=== PATIENT | male | born 1980 | race Caucasian/White ===

== ENCOUNTER 2025-03-04 15:09 | Outpatient (AMB) | payer OTHER, SELFPAY ==
--- NOTE | 2025-03-04 15:12 | MHC.PC.OV ---
Vital Signs 03/04/25 15:31 Height 5 ft 11 in Weight 186 lb 6 oz BMI 26.0 BP 118/78 Blood Pressure Location Lt brachial Position Sitting Respiration 16 Pulse 79 Pulse Source Pulse Oximeter Temp 97.7 F Temp Source Temporal Artery Scan Pulse Oximetry (%) 96 Oxygen Delivery Method Room Air Intake Visit Reasons: CPE? Intake Note: Virgil presents in the office today to establish care. Allergies oxycodone Allergy (Severe, Verified 03/04/25 15:27) Vomiting Tobacco use date assessed: 03/04/25 Dental Screening Dental Screen Date: 03/04/25 Did you have a dental visit in the last 12 months?: Yes Did you have a dental problem in the last 6 months where you did not have access to dental care?: No Was dental information given to patient?: Patient has dentist HPI HPI Comments History of Present Illness Details 44-year-old male presents to establish care. Patient hospitalized at [facility] 11/24/2024 after falling off a ladder. This is workman's comp. He does H VAC. Hospitalized for 3 weeks with multiple fractures including pelvic fracture. Dr. Lucas is hand surgeon at [facility] cleared for surgery. He has a follow up next week. He will sign a release for records. Had no LOC with trauma. 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 Declines flu vaccine. Patient reports he had tetanus vaccination within the past 10 years. He has a history of hemorrhoids. He has some itching and leakage with this. Prescribed procto court and he is referred for screening colonoscopy. He will have routine labs completed. ROS: Constitutional: No unexplained weight loss, fever, chills, fatigue or night sweats. Eyes: No vision changes, blurry vision, double vision, eye pain, eye redness, eye discharge. ENT: No hearing loss, sneezing, congestion, runny nose or sore throat. Respiratory: No shortness of breath, cough or sputum production. Cardiovascular: No chest pain, chest pressure or chest discomfort. No palpitations or pedal edema. Gastrointestinal: No anorexia, nausea, vomiting or diarrhea. No abdominal pain or blood in stool. Genitourinary: No dysuria, hematuria, urinary frequency. Neurologic: No headache, dizziness, syncope, unilateral weakness, ataxia, numbness or tingling in the extremities. Musculoskeletal: See HPI Hematologic/Lymphatics: No bleeding or bruising. No painful lymph nodes. Skin: No rash Endocrine: No cold or heat intolerance. No polyuria or polydipsia. Psychiatric: No depression or anxiety. No SI/HI. Physical exam: Constitutional: Alert, in no distress. Head: Normocephalic. Eyes: Pupils are equal, round and reactive to light. Extraocular muscles intact. Ear, Nose and Throat: Canals clear. TMs normal. Normal nasal mucosa. No nasal discharge. No oral lesions. Neck: Supple, Full range of motion. No lymphadenopathy. No palpable thyroid masses. Respiratory: Clear to auscultation. Cardiovascular: S1 S2 regular. No murmurs. Gastrointestinal: Abdomen soft, non-tender, non-distended. Normal bowel sounds. No palpable masses. : Deferred. Does home exams and denies masses, lumps, pain or swelling. Neurologic: No focal neurological deficits. Symmetric patellar reflexes. Skin: No rashes or lesions. Musculoskeletal: No joint swelling. Decreased range of motion with right hand. Extremities: Warm and well perfused. No clubbing, cyanosis or edema. Psychiatric: Normal mood and affect [facility] Medical History (Updated 03/05/25 @ 17:25 by ROSY Martines) Hemorrhoids Multiple fracture Screening for cardiovascular condition Routine physical examination Screen for colon cancer Wrist fracture Pelvic fracture Sinusitis Family History (Updated 03/04/25 @ 15:30 by Reba Summers [facility]) Mother Thyroid disorder Social History (Updated 03/04/25 @ 15:31 by Reba uSmmers CMA) Housing: House Alcohol intake: current Patient Tobacco Use Status: Never used Tobacco e-Cigarette/Vaping Use: Never Used Second Hand Smoke Exposure: Yes service: No Current occupational status: employed Current occupation: [employer] Current occupational exposures/hazards: No Cognitive needs: No Hearing needs: No Vision needs: No Questionnaire PHQ-9 Over the last 2 weeks, how often have you been bothered by any of the following problems? 1. Little interest or pleasure in doing things: not at all 2. Feeling down, depressed, or hopeless: not at all 3. Trouble falling or staying asleep, or sleeping too much: not at all 4. Feeling tired or having little energy: not at all 5. Poor appetite or overeating: not at all 6. Feeling bad about yourself - or that you are a failure or have let yourself or your family down: not at all 7. Trouble concentrating on things, such as reading the newspaper or watching television: not at all 8. Moving or speaking so slowly that other people could have noticed. Or the opposite - being so fidgety or restless that you have been moving around a lot more than usual: not at all 9. Thoughts that you would be better off or of hurting yourself in some way: not at all Total score: 0 Depression Screening Interpretation: Negative Depression Screening Done: Yes 34840 - PHQ-9 Billing: Yes Source: Developed by Drs. Edward Brown, Juanita Griffin, Desean Dean and colleagues, with an educational mery from [employer]. Thrive Questionnaire Date Thrive assessed: 03/04/25 I am a: Patient What is your living situation today?: I have a steady place to live Within the past 12 months, did the food you bought not last and you didn't have the money to get more?: Never true Within the past 12 months, did you worry whether your food would run out before you got money to buy more?: Never true Do you have trouble paying for medicines?: No Do you have trouble getting transportation to medical appointments?: No Do you have trouble paying your heating and electricity bill?: No Do you have trouble taking care of your child, family member or friend?: No Do you have trouble with day-to-day activities such as bathing, preparing meals, shopping, managing finances, etc.?: No Are you currently unemployed and looking for a job?: No Are you interested in more education?: Yes Please select the resources that you would like help with: None Currently or been in a relationship where the following occur: No concerns reported THRIVE Score: 0 AUDIT C Alcohol Use Questionnaire (AUDIT-C) 1. How often do you have a drink containing alcohol?: Monthly or less 2. How many drinks containing alcohol do you have on a typical day when you are drinking?: 1 or 2 3. How often do you have six or more drinks on one occasion?: Less than monthly Total Score: 2 ESTRELLITA-7 AMB Questionnaire ESTRELLITA-7 Date ESTRELLITA - 7 assessed: 03/04/25 Feeling nervous, anxious, or on edge: 0 = Not at all Not being able to stop or control worryin = Not at all Worrying too much about different things: 0 = Not at all Trouble relaxin = Not at all Being so restless that it is hard to sit still: 0 = Not at all Becoming easily annoyed or irritable: 0 = Not at all Feeling afraid as if something awful might happen: 0 = Not at all Total ESTRELLITA-7 score (0-4 normal; 5-9 mild; 10-14 moderate; 15-21 severe): 0 Source: Developed by Drs. Edward Brown, Juanita Griffin, Desean Dean and colleagues, with an educational mery from [employer]. ESTRELLITA-7 Assessment Billing ESTRELLITA-7 Assessment Tool: ESTRELLITA-7 Assessment 67045 Physical exam (Primary Care) Vital Signs: Last Vital Signs Temp 97.7 F 03/04/25 15:31 Pulse 79 03/04/25 15:31 Resp 16 03/04/25 15:31 BP 118/78 03/04/25 15:31 Pulse Ox 96 03/04/25 15:31 Oxygen Delivery Method Room Air 03/04/25 15:31 BMI result Body Mass Index 26.0 Tobacco/Smoking Status: Tobacco use Status Tobacco use date assessed 03/04/25 03/04/25 15:36 Patient Tobacco Use Status Never used Tobacco 03/04/25 15:36 e-Cigarette/Vaping Use Never Used 03/04/25 15:36 PHQ-9: PHQ-9 Score PHQ-9: Total score 0 03/05/25 17:22 Depression Screening Interpretation: Negative Thrive Assessment: Date of Thrive Assessment Date Thrive assessed 03/04/25 03/04/25 15:13 Currently or been in a relationship where the following occur: No concerns reported Coding Level of Care Code New Pt Prev Care 40-64y(75954) Diagnoses Routine physical examination Z00.00 Screen for colon cancer Z12.11 Screening for cardiovascular condition Z13.6 Multiple fracture T07.XXXA Additional Codes ESTRELLITA-7 Assessment Billing - ESTRELLITA-7 Assessment Tool: ESTRELLITA-7 Assessment 45200 ([id number]) PHQ-9 - 99682 - PHQ-9 Billing: Yes ([id number]) Assessment & Plan Assessment & Plan (1) Routine physical examination: Code(s): Z00.00 - Encounter for general adult medical examination without abnormal findings Category: Medical (2) Screen for colon cancer: Code(s): Z12.11 - Encounter for screening for malignant neoplasm of colon Category: Medical (3) Screening for cardiovascular condition: Code(s): Z13.6 - Encounter for screening for cardiovascular disorders Category: Medical (4) Multiple fracture: Code(s): T07.XXXA - Unspecified multiple injuries, initial encounter Category: Medical Plan Patient is seen today for a routine physical. As part of this visit we reviewed the following issues, which are considered and essential part of preventative health in this age group: - Testicular cancer screening, which includes self exam teaching - Screening for colon cancer - Discussed Prostate cancer screening - Blood pressure screening annually - Cholesterol screening - Nutritional and exercise counseling - Counseling of injury prevention including fire prevention, smoke alarms and seat belt usage - Screening for depression - Education about skin cancer - Recommendations about immunizations - Recommendation of an eye exam - Screening for substance abuse Orders: Orders Vitamin B12 Today T07.XXXA - Unspecified multiple injuries, initial encounter, Z00.00 - Encounter for general adult medical examination without abnormal findings, Z12.11 - Encounter for screening for malignant neoplasm of colon, Z13.6 - Encounter for screening for cardiovascular disorders, Z91.89 - Other specified personal risk factors, not elsewhere classified TSH reflex Free T4 Today T07.XXXA - Unspecified multiple injuries, initial encounter, Z00.00 - Encounter for general adult medical examination without abnormal findings, Z12.11 - Encounter for screening for malignant neoplasm of colon, Z13.6 - Encounter for screening for cardiovascular disorders Comprehensive Met. Panel Today T07.XXXA - Unspecified multiple injuries, initial encounter, Z00.00 - Encounter for general adult medical examination without abnormal findings, Z12.11 - Encounter for screening for malignant neoplasm of colon, Z13.6 - Encounter for screening for cardiovascular disorders Triiodothyronine T3 Free Today T07.XXXA - Unspecified multiple injuries, initial encounter, Z00.00 - Encounter for general adult medical examination without abnormal findings, Z12.11 - Encounter for screening for malignant neoplasm of colon, Z13.6 - Encounter for screening for cardiovascular disorders Prostate Specific Antigen Today T07.XXXA - Unspecified multiple injuries, initial encounter, Z00.00 - Encounter for general adult medical examination without abnormal findings, Z12.11 - Encounter for screening for malignant neoplasm of colon, Z12.5 - Encounter for screening for malignant neoplasm of prostate, Z13.6 - Encounter for screening for cardiovascular disorders Lipid Panel Today T07.XXXA - Unspecified multiple injuries, initial encounter, Z00.00 - Encounter for general adult medical examination without abnormal findings, Z12.11 - Encounter for screening for malignant neoplasm of colon, Z13.6 - Encounter for screening for cardiovascular disorders Complete Blood Count no Diff Today T07.XXXA - Unspecified multiple injuries, initial encounter, Z00.00 - Encounter for general adult medical examination without abnormal findings, Z12.11 - Encounter for screening for malignant neoplasm of colon, Z13.6 - Encounter for screening for cardiovascular disorders Vitamin D 25-OH (D2 and D3) Today T07.XXXA - Unspecified multiple injuries, initial encounter, Z00.00 - Encounter for general adult medical examination without abnormal findings, Z12.11 - Encounter for screening for malignant neoplasm of colon, Z13.6 - Encounter for screening for cardiovascular disorders Referrals Gastroenterology Referral T07.XXXA - Unspecified multiple injuries, initial encounter, Z00.00 - Encounter for general adult medical examination without abnormal findings, Z12.11 - Encounter for screening for malignant neoplasm of colon, Z13.6 - Encounter for screening for cardiovascular disorders Medications: New hydrocortisone 1% (Proctocort) 1 appl topical BID-TID PRN 28.35 grams 2RF skin irritation
[2025-03-04 15:31] VITALS: BP 118/78; PULSE 79; RESP 16; TEMP 36.5; O2SAT 96; BMI 26.0
--- OUTSIDE RECORDS SUMMARY | 2025-03-04 20:29 | XMS_ITS | Encounter Summary ---
Author Organization [facility] Address [address] [place] [address] Care Team Providers Care Auto Technician Name Role Phone Ref, Has No Pcp Or Primary Care Provider Unavail able Encounter Details Date Type Department Care Team (Late st Contact Info) Description 02/26/2025 Orders Only [facility] [address] [place] [id number] Satya Lucas MD [address] [place] [address] Other closed intra-articular fracture of distal end of left radius with routine healing, subsequent encounter (Primary Dx); Other closed intra-articular fracture of distal end of right radius, initial encounter Social History Tobacco Use Types Packs/Day Years Used Date Smoking Tobacco: Never Smokeless Tobacco: Never Alcohol Use Standard Drinks/Week Comments Not Currently 0 (1 standard drink = 0.6 oz pur e alcohol) Hunger Vital Sign Answer Date Recorded Within the past 12 months, y ou worried that your food would run out before you got the money to buy more. Never true 11/27/19 25 Within the past 12 months, t he food you bought just didn't last and you didn't have money to get more. Never true 11/26/2024 [facility] Utilities Answer Date Recorded In the past 12 months has e electric, gas, oil, or water company threatened to shut off services in your home? No 11/26/2024 Transportation Answer Date Recorded In the past 12 months, has l ack of reliable transportation kept you from medical appointments, meetings, work or from getting things needed for daily living? No 11/26/2024 Housing Answer Date Recorded Housing Risk Low 2 11/26/2024 Housing Risk Medium Not on file 11/26/2024 Housing Risk High Not on file 11/26/2024 What is your living situation today? [facility] 11/26/2024 Sex and Gender Information Value Date Recorded Sex Assigned at Male 11/24/2024 12:17 PM EDT Legal Sex Male 12:16 PM EDT Gender Identity Male 11/24/2024 12:17 PM EDT Sexual Orientation Straight 12/22/2024 8: 53 AM EDT documented as of this encounter Plan of Treatment Upcoming Encounters Date Type Department Care Team (Late st Contact Info) Description 03/09/2025 10:00 AM EST Follow-Up [facility] [address] [place] [id number] Satya Lucas MD [address] [place] [id number] 05/04/2025 10:30 AM EST Follow-Up [facility] [address] [place] [id number] Emily Iniguez MD [address] [place] [phone] Danika Moreno PA [address] [place] [id number] Scheduled Orders Name Type Priority Associated Diagnoses Orde r Schedule XR Wrist 3+ vw Right Imaging Routine Other closed intra-articular fracture of distal end of right radius, initial encounter Expected: 03/09/2025, Expires: 04/28/2026 XR Wrist 3+ vw Left Imaging Routine Other closed intra-articular fracture of distal end of left radius with routine healing, subsequent encounter Expected: 03/09/2025, Expires: 04/28/2026 Scheduled Procedures Name Priority Associated Diagnoses Date/Ti me OPEN TREATMENT, DISTAL RADIU S FRACTURE, INTRA-ARTICULAR, WITH INTERNAL FIXATION, 3 OR MORE FRAGMENTS Other closed intra-articular fracture of distal end of right radius, initial encounter CLOSED TREATMENT, DISTAL RAD IUS FRACTURE OR EPIPHYSEAL SEPARATION, WITHOUT MANIPULATION Other closed intra-articular fracture of distal end of right radius, initial encounter documented as of this encounter Visit Diagnoses Diagnosis Other closed intra-articular fracture of distal end of left radius with routine healing, subsequent encounter- Primary Other closed intra-articular fracture of distal end of right radius, initial encounter documented in this encounter Care Teams Auto Technician Relationship Specialty Start Date End Date Ref, Has No Pcp Or DO NOT EDIT THIS RECORD VIA PROVIDER ON THE FLY PCP - General Lithographic Platemaker 11/24/24 documented as of this encounter
--- OUTSIDE RECORDS SUMMARY | 2025-03-04 20:29 | XMS_ITS | Encounter Summary ---
Author Organization [facility] Address [address] [place] [address] Care Team Providers Care Fryline Attendant Name Role Phone Ref, Has No Pcp Or Primary Care Provider Unavail able Encounter Details Date Type Department Care Team (Late st Contact Info) Description 12/07/2024 Lab Requisition [facility] [address] [place] [address] [facility] [address] [place] [address] Social History Tobacco Use Types Packs/Day Years [...] money to get more. Never true 11/26/[address] [facility] Utilities Answer Date Recorded In the past 12 months has th e electric, gas, oil, or water company [...] AM EDT documented as of this encounter Functional Status documented as of this encounter Plan of Treatment Upcoming Encounters Date Type Department Care Team (Late st Contact Info) Description 03/09/2025 10:00 AM EST Follow-Up [facility] [address] [place] [phone] Satya Lucas MD [address] [place] [address] 05/04/2025 10:30 AM EST Follow-Up [facility] [address] [place] [address] Emily Iniguez MD [address] [place] [address] Danika Moreno PA [address] [place] [address] Scheduled Procedures Name Priority Associated Diagnoses Date/Ti me OPEN TREATMENT, DISTAL RADIU S FRACTURE, INTRA-ARTICULAR, WITH INTERNAL FIXATION, 3 OR MORE FRAGMENTS Other closed intra-articular fracture of distal end of right radius, initial encounter CLOSED TREATMENT, DISTAL RAD IUS FRACTURE OR EPIPHYSEAL SEPARATION, WITHOUT MANIPULATION Other closed intra-articular fracture of distal end of right radius, initial encounter documented as of this encounter Procedures * Due to [place] state law, this organization might not be sharing negative HIV tests. Procedure Name Priority Date/Time Associated Diagnosis Comments CBC AUTO DIFFERENTIAL Routine 12/10/2024 6:00 AM EDT BASIC METABOLIC PANEL Routine 12/10/2024 6:00 AM EDT CBC AUTO DIFFERENTIAL Routine 12/08/2024 6:50 AM EDT ALBUMIN Routine 12/08/2024 6:50 AM EDT BASIC METABOLIC PANEL Routine 12/08/2024 6:50 AM EDT documented in this encounter Results * Due to [place] state law, this organization might not be sharing negative HIV tests. * (ABNORMAL) Basic Metabolic Panel (12/10/2024 6:00 AM EDT) NA 137 136 - 145 mmol/L 12/10/2024 9:44 AM EDT [facility] K 4.5 3.5 - 5.1 mmol/L 12/10/2024 9:44 AM EDT [facility] Cl 101 98 - 109 mmol/L 12/10/2024 9:44 AM EDT [facility] CO2 23 22 - 32 mmol/L 12/10/2024 9:44 AM EDT [facility] BUN 27(H) 6 - 20 mg/dL 12/10/2024 9:44 AM EDT [facility] Creatinine 0.90 0.50 - 1.12 mg/dL 12/10/2024 9:44 AM EDT [facility] Glucose 95 60 - 99 mg/dL 12/10/2024 9:44 AM EDT [facility] Calcium 9.4 8.4 - 10.4 mg/dL 12/10/2024 9:44 AM EDT [facility] Anion Gap 18 >=0 12/10/2024 9:44 AM EDT [facility] eGFR >90 >=60 mL/min/1. 73m2 12/10/2024 9:44 AM EDT [facility] Comment:The estimated glomer ular filtration rate (eGFR) is calculated using a new formula developed by the NKF-ASN task force to eliminate race-based correction factors. The new formula uses serum/plasma creatinine, age, and gender to determine eGFR. A value below 60mls/min might indicate kidney disease and will be flagged. For additional information, see Torie et al, Am J Kidney Dis. 2021;79(2):268- 288, A Unifying Approach for GFR estimation: Recommendations of the NKF-ASN Task Force on Reassessing the Inclusion of Race in Diagnosing Kidney Disease . Blood Structure of peripheral vein / Unknown Venipuncture / Unknown 12/10/2024 6:00 AM EDT 12/10/2024 7:34 AM EDT Narrative [facility] - 12/10/2024 9:44 AM EDT NUR3\S\305\S\A\S\0156\S\S\BED\S\0156 us Macho Atoofi PA LAB BLOOD ORDERABLES Final Resul t [facility] [address] [place] [address] [address] [place] [address], * (ABNORMAL) CBC Auto Differential (12/10/2024 6:00 AM EDT) WBC 6.3 4.8 - 10.8 10*3/uL 12/10/2024 9:09 AM EDT [facility] RBC 4.63(L) 4.70 - 6.10 10*6/uL 12/10/2024 9:09 AM EDT [facility] Hemoglobin 12.4(L) 13.7 - 16.5 g/dL 12/10/2024 9:09 AM EDT [facility] Hematocrit 36.8(L) 40.5 - 48.5 % 12/10/2024 9:09 AM EDT [facility] MCV 79.5(L) 80.0 - 94.0 fL 12/10/2024 9:09 AM EDT [facility] MCH 26.8 26.0 - 34.0 pg 12/10/2024 9:09 AM EDT [facility] MCHC 33.7 31.0 - 36.0 g/dL 12/10/2024 9:09 AM EDT [facility] RDW 12.4 12.0 - 15.0 % 12/10/2024 9:09 AM EDT [facility] RDW Standard Deviation 35.6 35.1 - 43.9 fL 12/10/2024 9:09 AM EDT [facility] Platelets 338 140 - 440 10*3/uL 12/10/2024 9:09 AM EDT [facility] MPV 10.0 9.4 - 12.4 fL 12/10/2024 9:09 AM EDT [facility] Neutrophil % 58.3 50.0 - 75.0 % 12/10/2024 9:09 AM EDT [facility] Immature Grans % 0.5 0.0 - 0.9 % 12/10/2024 9:09 AM EDT [facility] Lymphocyte % 26.2 20.0 - 44.0 % 12/10/2024 9:09 AM EDT [facility] Monocyte % 10.7 0.0 - 14.0 % 12/10/2024 9:09 AM EDT [facility] Eosinophil % 3.5 0.0 - 5.0 % 12/10/2024 9:09 AM EDT [facility] Basophil % 0.8 0.0 - 2.0 % 12/10/2024 9:09 AM EDT [facility] Neutrophil # 3.69 1.80 - 7.70 10*3/uL 12/10/2024 9:09 AM EDT [facility] Immature Grans # 0.03 0.00 - 0.03 10*3/uL 12/10/2024 9:09 AM EDT [facility] Lymphocyte # 1.70 1.00 - 4.75 10*3/uL 12/10/2024 9:09 AM EDT [facility] Monocyte # 0.70(H) 0.00 - 0.60 10*3/uL 12/10/2024 9:09 AM EDT [facility] Eosinophil # 0.20 0.00 - 0.80 10*3/uL 12/10/2024 9:09 AM EDT [facility] Basophil # 0.10 0.00 - 0.20 10*3/uL 12/10/2024 9:09 AM EDT [facility] nRBC % 0.0 0 - 0 /100 WBCs 12/10/2024 9:09 AM EDT [facility] nRBC # <0.01 0.00 - 0.13 10*3/uL 12/10/2024 9:09 AM EDT [facility] Blood Structure of peripheral vein / Unknown Venipuncture / Unknown 12/10/2024 6:00 AM EDT 12/10/2024 7:36 AM EDT [facility] LAB BLOOD ORDERABLES Final Resul t Performing Organization Address [facility] de Phone Number [facility] [address] [place] [place] [id number], [place] [phone] * Albumin (12/08/2024 6:50 AM EDT) Albumin 4.3 3.5 - 5.0 g/dL 12/08/2024 11:33 AM EDT [facility] Blood Structure of peripheral vein / Unknown Venipuncture / Unknown 12/08/2024 6:50 AM EDT 12/08/2024 7:37 AM EDT Narrative [facility] - 12/08/2024 11:33 AM EDT NUR3\S\305\S\A\S\0156\S\S\BED\S\0156 NUR3\S\305\S\A\S\0156\S\S\BED\S\0156 Macho Atoofi PA LAB BLOOD ORDERABLES Final Resul t Performing Organization Address [facility] Co de Phone Number [facility] [address] [place] [address], [place] [phone] * (ABNORMAL) Basic Metabolic Panel (12/08/2024 6:50 AM EDT) NA 137 136 - 145 mmol/L 12/08/2024 11:33 AM EDT [facility] K 4.8 3.5 - 5.1 mmol/L 12/08/2024 11:33 AM EDT [facility] Cl 101 98 - 109 mmol/L 12/08/2024 11:33 AM EDT [facility] CO2 24 22 - 32 mmol/L 12/08/2024 11:33 AM EDT [facility] BUN 20 6 - 20 mg/dL 12/08/2024 11:33 AM EDT [facility] Creatinine 0.87 0.50 - 1.12 mg/dL 12/08/2024 11:33 AM EDT [facility] Glucose 111(H) 60 - 99 mg/dL 12/08/2024 11:33 AM EDT [facility] Calcium 9.8 8.4 - 10.4 mg/dL 12/08/2024 11:33 AM EDT [facility] Anion Gap 17 >=0 12/08/2024 11:33 AM T [facility] eGFR >90 >=60 mL/min/1. 73m2 12/08/2024 11:33 AM T [facility] Comment:The estimated glomer ular filtration rate (eGFR) is calculated using a new formula developed by the NKF-ASN task force to eliminate race-based correction factors. The new formula uses serum/plasma creatinine, age, and gender to determine eGFR. A value below 60mls/min might indicate kidney disease and will be flagged. For additional information, see Torie et al, Am J Kidney Dis. 2021;79(2):268- 288, A Unifying Approach for GFR estimation: Recommendations of the NKF-ASN Task Force on Reassessing the Inclusion of Race in Diagnosing Kidney Disease . Blood Structure of peripheral vein / Unknown Venipuncture / Unknown 12/08/2024 6:50 AM EDT 12/08/2024 7:37 AM EDT [facility] - 12/08/2024 11:33 AM EDT NUR3\S\305\S\A\S\0156\S\S\BED\S\0156 NUR3\S\305\S\A\S\0156\S\S\BED\S\0156 us Macho Atemmafi PA LAB BLOOD ORDERABLES Final Resul t [facility] [address] [place] [address], * (ABNORMAL) CBC Auto Differential (12/08/2024 6:50 AM EDT) WBC 6.6 4.8 - 10.8 10*3/uL 12/08/2024 11:02 AM EDT [facility] RBC 4.98 4.70 - 6.10 10*6/uL 12/08/2024 11:02 AM EDT [facility] Hemoglobin 13.3(L) 13.7 - 16.5 g/dL 12/08/2024 11:02 AM EDT [facility] Hematocrit 40.2(L) 40.5 - 48.5 % 12/08/2024 11:02 AM EDT [facility] MCV 80.7 80.0 - 94.0 fL 12/08/2024 11:02 AM EDT [facility] MCH 26.7 26.0 - 34.0 pg 12/08/2024 11:02 AM EDT [facility] MCHC 33.1 31.0 - 36.0 g/dL 12/08/2024 11:02 AM EDT [facility] RDW 12.5 12.0 - 15.0 % 12/08/2024 11:02 AM EDT [facility] RDW Standard Deviation 36.1 35.1 - 43.9 fL 12/08/2024 11:02 AM EDT [facility] Platelets 387 140 - 440 10*3/uL 12/08/2024 11:02 AM EDT [facility] Comment:REVIEWED MPV 9.8 9.4 - 12.4 fL 12/08/2024 11:02 AM EDT [facility] Neutrophil % 62.7 50.0 - 75.0 % 12/08/2024 11:02 AM EDT [facility] Immature Grans % 0.5 0.0 - 0.9 % 12/08/2024 11:02 AM EDT [facility] Lymphocyte % 24.1 20.0 - 44.0 % 12/08/2024 11:02 AM EDT [facility] Monocyte % 9.5 0.0 - 14.0 % 12/08/2024 11:02 AM EDT [facility] Eosinophil % 2.6 0.0 - 5.0 % 12/08/2024 11:02 AM EDT [facility] Basophil % 0.6 0.0 - 2.0 % 12/08/2024 11:02 AM EDT [facility] Neutrophil # 4.17 1.80 - 7.70 10*3/uL 12/08/2024 11:02 AM EDT [facility] Immature Grans # 0.03 0.00 - 0.03 10*3/uL 12/08/2024 11:02 AM EDT [facility] Lymphocyte # 1.60 1.00 - 4.75 10*3/uL 12/08/2024 11:02 AM EDT [facility] Monocyte # 0.60 0.00 - 0.60 10*3/uL 12/08/2024 11:02 AM EDT [facility] Eosinophil # 0.20 0.00 - 0.80 10*3/uL 12/08/2024 11:02 AM EDT [facility] Basophil # <0.03 0.00 - 0.20 10*3/uL 12/08/2024 11:02 AM EDT [facility] nRBC % 0.0 0 - 0 /100 WBCs 12/08/2024 11:02 AM EDT [facility] nRBC # <0.01 0.00 - 0.13 10*3/uL 12/08/2024 11:02 AM EDT [facility] Blood Structure of peripheral vein / Unknown Venipuncture / Unknown 12/08/2024 6:50 AM EDT 12/08/2024 7:39 AM EDT us Macho Atoofi PA LAB BLOOD ORDERABLES Final Resul t [facility] [address] [address], [place] [phone] documented in this encounter Visit Diagnoses Not on filedocumented in this encounter Care Teams Fryline Attendant Relationship Specialty Start Date End Date Ref, Has No Pcp Or DO NOT EDIT THIS RECORD VIA PROVID[facility] PCP - General Drill Setup Operator 11/24/24 documented as of this encounter
--- OUTSIDE RECORDS SUMMARY | 2025-03-04 20:29 | XMS_ITS | Encounter Summary ---
Author Organization [facility] Address [address] [place] [address] Care Team Providers Care Laborer [facility] Name Role Phone Ref, Has No Pcp Or Primary Care Provider Unavail able Encounter Details Date Type Department Care Team (Late st Contact Info) Description 02/10/2025 [facility] Message [facility] [address] [place] [id number] [place], Generic Provider [address] [place], [place] [id number] Physician form Social History Tobacco Use Types Packs/Day Years [...] money to get more. Never true 11/26/2024 [facility] Utilities Answer Date Recorded In the [...] Info) Description 03/09/2025 10:00 AM EST Follow-Up [facility] [address] [place] [address] Satya Lucas MD [address] [place] [address] 05/04/2025 10:30 AM EST Follow-Up [facility] [address] [place] [address] Emily Iniguez MD [address] [place] [phone] Danika Moreno PA [address] [place] [phone] Scheduled Procedures Name Priority Associated Diagnoses Date/Ti [...] documented as of this encounter Visit Diagnoses Not on filedocumented in this encounter Care Teams Laborer [employer] House Relationship Specialty Start Date End Date Ref, Has No Pcp Or DO NOT EDIT THIS RECORD VIA PROVIDER ON [employer] [facility] PCP - General Senior Technical Trainer 11/24/24 documented as of this encounter
--- OUTSIDE RECORDS SUMMARY | 2025-03-04 20:29 | XMS_ITS ---
Author Name [facility] Organization Unknown Encounters Encounter Type Encounter Reason Primary Diagnosis Location Date Ambulatory [facility]. ([facility]) 04/26/2024
--- OUTSIDE RECORDS SUMMARY | 2025-03-04 20:29 | XMS_ITS | Clinical Summary ---
Author Organization [facility] Address [address] [place] [address] Care Team Providers Care Autocad Name Role Phone Ref, Has No Pcp Or Primary Care Provider Unavail able Allergies Active Allergy Reactions Criticality Noted Date Comments Oxycodone Vomiting 11/24/2024 Medications acetaminophen (TYLENOL) 325 mg tablet Take 3 tablets (975 mg total) by mouth every 6 hours as needed for pain. 12/07/2024 Active traMADoL (ULTRAM) 25 mg tablet Take 1-2 tablets (25-50 mg total) by mouth every 6 hours as needed for pain. 12/07/2024 Active carboxymethylce llulose (REFRESH PLUS) 0.5% ophthalmic solution Instill 2 drops into both eyes 3 times a day as needed for dry eyes. 12/07/2024 Active aspirin 81 mg EC tablet Take 1 tablet (81 mg total) by mouth 2 times a day. 12/07/2024 Active Active Problems Problem Noted Date Diagnosed Date Fracture of pubis 11/24/2024 Overview (11/24/2024): Acute comminuted and mildly displaced fracture of the right pubis at the iliopubic junction with intra-articular extension into the acetabulum. -ortho c/s Assessment & Plan (11/24/2024 4:26 PM EDT): Fractures of R superior and inferior pubic ramus noted on XR and CT scans - [facility] as above - Ortho following, appreciate recs --- Ortho recs Assessment & Plan (11/24/2024 4:20 PM EDT): Acute comminuted and mildly displaced fracture of the right pubis at the iliopubic junction with intra-articular extension into the acetabulum Acute comminuted and mildly displaced fracture of the right pubis at the symphyseal surface. Acute nondisplaced right sacral alar fracture, lateral to the neuroforamina. -Ortho cs Fall 11/24/2024 Assessment & Plan (11/24/2024 4:24 PM EDT): Mechanical fall from ladder; patient has clear recollection and denies HS, LOC. No AC. Numerous injuries as detailed elsewhere. - MMPC: --- Tylenol 650 q6h MILENA --- Gabapentin 300mg q8h MILENA --- Robaxin 500mg q4h MILENA --- Oxycodone 5mg/2.5mg q2h PRN for breakthrough pain Assessment & Plan (11/24/2024 4:19 PM EDT): Fall 15 feet from ladder. Panel 2 imaging -labs Closed fracture of distal end of radius 11/25/19 Assessment & Plan (11/24/2024 4:25 PM EDT): Displaced intraarticular fracture of distal R radius. Reduced at bedside by plastic surgery. - MMPC as above - Plastics following, appreciate recs --- plastics recs (presumably NWB RUE, splint) Assessment & Plan (11/24/2024 4:52 PM EDT): Right sided: Acute comminuted impacted intra-articular fracture of the distal radius with dorsal angulation and displacement. Probable nondisplaced ulnar styloid fracture. The carpus is dorsally dislocated with the distal radial fracture fragment. Surrounding soft tissue swelling. -hand consult (PRS) Sacral fracture 11/24/2024 Assessment & Plan (11/24/2024 4:25 PM EDT): Fracture of R sacral ala after fall as above. - MMPC as above - Ortho following, appreciate recs --- Ortho recs Fracture of styloid process of left radius 11/24 Assessment & Plan (11/24/2024 4:52 PM EDT): Left sided: Nondisplaced acute intra-articular fracture of the radial styloid. No joint dislocation. There is surrounding soft tissue swelling. -hand c/s Closed fracture of multiple pubic rami, right, initial encounter 11/24/2024 Encounters Date Type Department Care Team Description 02/26/2025 Orders Only [facility] and Upper Extrem[facility] [address] [place] [phone] Satya Lucas MD Other closed intra-articular fracture of distal end of left radius with routine healing, subsequent encounter (Primary Dx); Other closed intra-articular fracture of distal end of right radius, initial encounter 02/22/2025 myChart Message [facility] Upper Extremity [address] [address] Staya Lucas MD Right wrist 02/10/2025 myChart Message [facility] [address] [place] [id number] Baldemar, Generic Provider Physician form 02/09/2025 1:15 PM EDT Follow-Up [facility] [address] [place] [address] Emily Iniguez MD Multiple closed anterior-posterior compression fractures of pelvis with unstable pelvic ring (Primary Dx) 02/09/2025 11:00 AM EDT Follow-Up [facility] Extremity [address] [address] Satya Lucas MD Other closed intra-articular fracture of distal end of right radius, initial encounter (Primary Dx); Other closed intra-articular fracture of distal end of left radius with routine healing, subsequent encounter 02/08/2025 Orders Only [facility] Podiatry [address] [place] [address] Power Line Installer And Repairer: Chloe Floyd CMA Multiple closed anterior-posterior compression fractures of pelvis with unstable pelvic ring (Primary Dx) 02/02/2025 Orders Only [facility] Extremity [address] [address] Satya Lucas MD Left wrist pain (Primary Dx); Other closed intra-articular fracture of distal end of right radius, initial encounter 02/01/2025 Orders Only [facility] Pediatric Orthopedics [address] [address] Chloe Dallas CMA Closed fracture of multiple pubic rami, right, initial encounter (Primary Dx) 01/12/2025 11:00 AM EDT Follow-Up [address] [address] Satya Lucas MD Other closed intra-articular fracture of distal end of right radius, initial encounter (Primary Dx); Other closed intra-articular fracture of distal end of left radius with routine healing, subsequent encounter 01/01/2025 Orders Only [address] [address] Satya Lucas MD Left wrist pain (Primary Dx); Other closed intra-articular fracture of distal end of right radius, initial encounter 12/29/2024 2:15 PM EDT Follow-Up [facility] [address] [place] [phone] Emily Iniguez MD Multiple closed anterior-posterior compression fractures of pelvis with unstable pelvic ring (HCC) (Primary Dx) 12/28/2024 Orders Only [facility] Orthopedics [address] [address] Chloe Dallas CMA Closed fracture of multiple pubic rami, right, initial encounter (HCC) (Primary Dx) 12/15/2024 10:45 AM EDT Follow-Up [facility] [address] [place] [address] Emily Iniguez MD Multiple closed anterior-posterior compression fractures of pelvis with unstable pelvic ring (HCC) (Primary Dx) 12/10/2024 2:45 PM EDT Office Visit [facility] Hand Therapy [address] [place] [phone] Lidia Waterman OT Closed intra-articular -punch fracture of right radius with routine healing, subsequent encounter (Primary Dx); Deficit in activities of daily living (ADL) 12/10/2024 1:30 PM EDT Office Visit [facility] [address] [place] [phone] Satya Lucas MD Other closed intra-articular fracture of distal end of right radius, initial encounter (Primary Dx) 12/10/2024 Orders Only [facility] [address] [place] [phone] Satya Lucas MD Left wrist pain (Primary Dx) 12/09/2024 Orders Only [facility] and Upper Extremity Center [address] [place] [phone] Satya Lucas MD Other closed intra-articular fracture of distal end of right radius, initial encounter (Primary Dx) 12/07/2024 Lab Requisition [facility] Lab [address] [place] [address] Macho Robles PA 11/24/2024 12:20 PM EDT - 12/07/2024 7:10 PM EDT Hospital Encounter [facility] [address] [place] [address] Teddy Buckner MD Polan, David L., MD Iannamorelli, Michael L., Jahaira Trinidad MD PhD Closed fracture of multiple pubic rami, right, initial encounter (HCC) (Primary Dx); Other closed intra-articular fracture of distal end of right radius, initial encounter Discharge Disposition: Inpatient Rehab Facility (IRF) (62) from Last 3 Months Social History Tobacco Use Types Packs/Day Years Used Date Smoking Tobacco: Never Smokeless Tobacco: Never Tobacco Cessation:Counseling Given: Not Answered Alcohol Use Standard Drinks/Week Comments Not Currently 0 (1 standard drink = 0.6 oz pur e alcohol) Hunger Vital Sign Answer Date Recorded Within the past 12 months, y ou worried that your food would run out before you got the money to buy more. Never true 11/27/19 Within the past 12 months, t he food you bought just didn't last and you didn't have money to get more. Never true 11/26/2024 [facility] Utilities Answer Date Recorded In the [...] Orientation Straight 12/22/2024 8: 53 AM EDT Last Filed Vital Signs Vital Sign Reading Time Taken Comments Blood Pressure 113/76 12/07/2024 4:38 PM EDT Pulse 92 12/07/2024 4:38 PM EDT Temperature 36.7 C (98.1 F) 12/07/2024 4:38 PM EDT Respiratory Rate 18 12/07/2024 4:38 PM EDT Oxygen Saturation 97% 12/07/2024 4:38 PM EDT Inhaled Oxygen Concentration - - Weight 90.7 kg (200 lb) 11/24/2024 6:39 PM EDT Height 180.3 cm (5' 11 ) 11/27/2024 7:55 PM EDT Body Mass Index 27.89 11/24/2024 6:39 PM EDT Plan of Treatment Upcoming Encounters Date Type Department Care Team (Late st Contact Info) Description 03/09/2025 10:00 AM EST Follow-Up [facility] [address] [place] [phone] Satya Lucas MD [address] [place] [phone] 05/04/2025 10:30 AM EST Follow-Up [facility] [address] [place] [address] Emily Iniguez MD [address] [place] [address] [phone] Danika Moreno PA [address] [place] [phone] Scheduled Procedures Name Priority Associated Diagnoses Date/Ti me OPEN TREATMENT, DISTAL RADIU S FRACTURE, INTRA-ARTICULAR, WITH INTERNAL FIXATION, 3 OR MORE FRAGMENTS Other closed intra-articular fracture of distal end of right radius, initial encounter CLOSED TREATMENT, DISTAL RAD IUS FRACTURE OR EPIPHYSEAL SEPARATION, WITHOUT MANIPULATION Other closed intra-articular fracture of distal end of right radius, initial encounter Health Maintenance Due Date Last Done Comments Cologuard 1979 Colon Cancer Screening 1979 Colonoscopy 1979 FOBT / Fit Test 1979 HIV Screening 1979 Hepatitis C Screening 1979 Sigmoidoscopy 1979 Varicella Vaccines (1 of 2 - 13+ 2-dose series) 09/25/1992 Hepatitis B Vaccines (1 of 3 - 19+ 3-dose series) 09/25/1998 Pneumococcal Vaccine: Pediat haider (0-5 Years) and At-Risk Patients (6-50 Years) (1 of 2 - PCV) 09/25/1998 Alcohol/Substance Use Screening 04/15/2024 Depression Screening and Follow-Up 04/15/2024 Influenza Vaccine (#1) 2024 COVID-19 Vaccine (1 - 2024-2 6 season) 2024 Social Drivers of Health Trang ual Screening 11/26/2025 11/26/2024 Diabetes Screening 12/11/2027 12/10/2024, 0 12/08/2024, 12/03/2024, Additional history exists DTaP,Tdap,and Td Vaccines (5 - Td or Tdap) 12/10/2030 12/10/2020, 04/15/2011, 07/17/2010, Additional history exists Medical Devices Implanted Type Area Forest Examiner Device Identifier Shelf Expiration Date Model / Serial / Lot Washer For 6.5mm Cannulated Screw - [id number] Implanted:Qty: 1 on 11/27/2024 by Emily Iniguez MD at [facility] Implant Right: Hip [employer] [id number] .05 / / Plate Volar Peek Wide Right 5 Hole - [id number] Implanted:Qty: 1 on 11/30/2024 by Satya Lucas MD at [facility] Implant Right: Wrist Car [employer] [id number] / / Peg Locking [id number] - [id number] Implanted:Qty: 3 on 11/30/2024 by Satya Lucas MD at [facility] Implant Right: Wrist [employer] [id number] / / Screw Bone Cannulated Fully Threaded Self-Tapping Self-Drilling Titanium [id number] Css Plus - [id number] Implanted:Qty: 1 on 11/27/2024 by Emily Iniguez MD at [facility] Screw Right: Hip [employer] [id number] / / Screw Bone Cannulated Fully Threaded Self-Tapping Self Drilling Titanium Sterile 6.5mm X 160mm Css Plus - [id number] Implanted:Qty: 1 on 11/27/2024 by Emily Iniguez MD at [facility] Screw Right: Hip DEPUY [employer] 10/06/2027 04.355.712 S / / [id number] Screw Locking [id number] - [id number] Implanted:Qty: 2 on 11/30/2024 by Satya Lucas MD at [facility] Screw Right: Wrist [employer] [id number] / / Screw Locking [id number] - [id number] Implanted:Qty: 1 on 11/30/2024 by Satya Lucas MD at [facility] Screw Right: Wrist [employer] [id number] / / Screw Non-Locking [id number] - [id number] Implanted:Qty: 2 on 11/30/2024 by Satya Lucas MD at [facility] Screw Right: Wrist [employer] [id number] / / Screw Non-Locking [id number] - [id number] Implanted:Qty: 1 on 11/30/2024 by Satya Lucas MD at [facility] Screw Right: Wrist [employer] [id number] / / Screw Non-Locking [id number] - [id number] Implanted:Qty: 2 on 11/30/2024 by Satya Lucas MD at [facility] Screw Right: Wrist [employer] [id number] / / Peg Locking [id number] - [id number] Implanted:Qty: 2 on 11/30/2024 by Satya Lucas MD at [facility] Screw Right: Wrist [employer] [id number] / / Procedures * Due to [place] state law, this organization might not be sharing negative HIV tests. Procedure Name Priority Date/Time Associated Diagnosis Comments XR PELVIS 3+ VW Routine 02/09/2025 1:07 PM EDT Multiple closed anterior-posterior compression fractures of pelvis with unstable pelvic ring XR WRIST 3+ VW RIGHT Routine 02/09/2025 11:17 AM EDT Other closed intra-articular fracture of distal end of right radius, initial encounter XR WRIST 3+ VW LEFT Routine 02/09/2025 1 1:17 AM EDT Left wrist pain XR WRIST 3+ VW RIGHT Routine 01/12/2025 10:53 AM EDT Other closed intra-articular fracture of distal end of right radius, initial encounter XR WRIST 3+ VW LEFT Routine 01/12/2025 1 0:53 AM EDT Left wrist pain XR PELVIS 3+ VW Routine 12/29/2024 2:05 PM EDT Closed fracture of multiple pubic rami, right, initial encounter ([facility]) XR WRIST 3+ VW LEFT Routine 12/10/2024 1 :46 PM EDT Left wrist pain XR WRIST 3+ VW RIGHT Routine 12/10/2024 1:46 PM EDT Other closed intra-articular fracture of distal end of right radius, initial encounter BASIC METABOLIC PANEL Routine 12/10/2024 6:00 AM EDT CBC AUTO DIFFERENTIAL Routine 12/10/2024 6:00 AM EDT ALBUMIN Routine 12/08/2024 6:50 AM EDT BASIC METABOLIC PANEL Routine 12/08/2024 6:50 AM EDT CBC AUTO DIFFERENTIAL Routine 12/08/2024 6:50 AM EDT XR WRIST 3+ VW RIGHT Routine 12/07/2024 8:14 AM EDT PHOSPHORUS Routine 12/03/2024 4:16 AM EDT MAGNESIUM Routine 12/03/2024 4:16 AM EDT BASIC METABOLIC PANEL Routine 12/03/2024 4:16 AM EDT CBC AUTO DIFFERENTIAL Routine 12/03/2024 4:16 AM EDT PHOSPHORUS Routine 12/02/2024 4:40 AM EDT MAGNESIUM Routine 12/02/2024 4:40 AM EDT BASIC METABOLIC PANEL Routine 12/02/2024 4:40 AM EDT CBC AUTO DIFFERENTIAL Routine 12/02/2024 4:40 AM EDT from Last 3 Months Results * Due to [place] state law, this organization might not be sharing negative HIV tests. * X-Ray Pelvis 3+ Views (02/09/2025 1:07 PM EDT) Only the most recent of2 resultswithin the time period is included. Anatomical Region Laterality Modality Body, Pelvis Computed Radiogr aphy 02/11/2025 10:1 3 AM EDT Impressions 02/11/2025 10:16 AM EDT 1. Healing right obturator ring and right sacral fractures status post SI screw fixation in similar alignment to prior. No hardware complications. If this radiology report contains a blank impression section, it is an incomplete radiology report. Please contact the interpreting radiologist or applicable radiology division as soon as possible to obtain the completed interpretation. Workstation ID: [id number] Narrative 02/11/2025 10:16 AM EDT XR PELVIS 3+ VW INDICATION: F/U S32.811A - I10 - Multiple fractures of pelvis with unstable disruption of pelvic ring, initial encounter for closed fracture COMPARISON: 12/29/2024 - pelvis XR FINDINGS: Healing right obturator ring fracture and right sacral fracture status post SI screw fixation in similar alignment to prior. No hardware complications. No new fracture. No acute traumatic malalignment. No dislocation. No joint space narrowing. Partially imaged degenerative changes of the lower lumbar spine. Resulting Agency Comment [id number] Procedure Note Luis Faria MD - 02/11/2025 XR PELVIS 3+ VW INDICATION: F/U S32.811A - I10 - Multiple fractures of pelvis withunstable disruption of pelvic ring, initial encounter for closed fracture COMPARISON: 12/29/2024 - pelvis XR FINDINGS: Healing right obturator ring fracture and right sacral fracture statuspost SI screw fixation in similar alignment to prior. No hardwarecomplications. No new fracture. No acute traumatic malalignment. No dislocation. No joint space narrowing. Partially imaged degenerative changes of the lower lumbar spine. IMPRESSION: 1. Healing right obturator ring and right sacral fractures status post SIscrew fixation in similar alignment to prior. No hardware complications. If this radiology report contains a blank impression section, it is anincomplete radiology report. Please contact the interpreting radiologistor applicable radiology division as soon as possible to obtain thecompleted interpretation. Workstation ID: [id number] us Emily Iniguez MD IMG XR PROCEDURES Final Resul t * XR Wrist 3+ vw Right (02/09/2025 11:17 AM EDT) Only the most recent of4 resultswithin the time period is included. Anatomical Region Laterality Modality Upper Extremities, Wrist Right Compute d Radiography 02/11/2025 12:4 2 PM EDT Impressions 02/11/2025 12:42 PM EDT Internally fixated healing distal radius fracture without hardware complication. Unchanged ulnar styloid fracture. If this radiology report contains a blank impression section, it is an incomplete radiology report. Please contact the interpreting radiologist or applicable radiology division as soon as possible to obtain the completed interpretation. Workstation ID: [id number] Narrative 02/11/2025 12:42 PM EDT COMPARISON: 01/12/2025 FINDINGS: Volar plate and screw fixation of the healing intra-articular comminuted fracture. Similar alignment with continued callus. Hardware remains intact. There is no radiographic evidence of hardware-related complication. Unchanged displaced ulnar styloid fracture avulsion. Diffuse osteopenia. No acute fracture. Resulting Agency Comment [id number] Procedure Note Sami Nguyen, DO - 02/11/2025 COMPARISON: 01/12/2025 FINDINGS: Volar plate and screw fixation of the healing intra- articularcomminuted fracture. Similar alignment with continued callus. Hardwareremains intact. There is no radiographic evidence of hardware-relatedcomplication. Unchanged displaced ulnar styloid fracture avulsion. Diffuseosteopenia. No acute fracture. IMPRESSION: Internally fixated healing distal radius fracture without hardwarecomplication. Unchanged ulnar styloid fracture. If this radiology report contains a blank impression section, it is anincomplete radiology report. Please contact the interpreting radiologistor applicable radiology division as soon as possible to obtain thecompleted interpretation. Workstation ID: [id number] Satya Lucas MD IMG XR PROCEDURES Final Result * XR Wrist 3+ vw Left (02/09/2025 11:17 AM EDT) Only the most recent of3 resultswithin the time period is included. Anatomical Region Laterality Modality Upper Extremities, Wrist Left Compute d Radiography 02/11/2025 12:4 8 PM EDT Impressions 02/11/2025 12:48 PM EDT Similar alignment of the healing distal radial fracture. If this radiology report contains a blank impression section, it is an incomplete radiology report. Please contact the interpreting radiologist or applicable radiology division as soon as possible to obtain the completed interpretation. Workstation ID: [id number] Narrative 02/11/2025 12:48 PM EDT COMPARISON: 01/12/2025 FINDINGS: Similar alignment of the healing minimally displaced distal radial intra-articular fracture. No acute fracture. Distal radioulnar joint is congruent. Resulting Agency Comment [id number] Procedure Note Sami Nguyen, DO - 02/11/2025 COMPARISON: 01/12/2025 FINDINGS: Similar alignment of the healing minimally displaced distalradial intra-articular fracture. No acute fracture. Distal radioulnarjoint is congruent. IMPRESSION: Similar alignment of the healing distal radial fracture. If this radiology report contains a blank impression section, it is anincomplete radiology report. Please contact the interpreting radiologistor applicable radiology division as soon as possible to obtain thecompleted interpretation. Workstation ID: [id number] us Satya Lucas MD IMG XR PROCEDURES Final Result * (ABNORMAL) CBC Auto Differential (12/10/2024 6:00 AM EDT) Only the most recent of4 resultswithin the time period is included. [facility] WBC 6.3 4.8 - 10.8 10*3/uL 12/10/2024 9:09 AM EDT [facility] RBC 4.63(L) 4.70 - 6.10 10*6/uL 12/10/2024 9:09 AM EDT [facility] Hemoglobin 12.4(L) 13.7 - 16.5 g/dL 12/10/2024 9:09 AM EDT [facility] Hematocrit 36.8(L) 40.5 - 48.5 % 12/10/2024 9:09 AM EDT [facility] MCV 79.5(L) 80.0 - 94.0 fL 12/10/2024 9:09 AM EDT [facility] MCH 26.8 26.0 - 34.0 pg 12/10/2024 9:09 AM EDT [facility] MCHC 33.7 31.0 - 36.0 g/dL 12/10/2024 9:09 AM EDT [facility] RDW 12.4 12.0 - 15.0 % 12/10[facility]2024 [facility] Standard Deviation 35.6 35.1 - 43.9 fL 12/10/2024 9:09 AM [facility] Platelets 338 140 - 440 10*3/uL 12/10/2024 9:09 AM EDT [facility] MPV 10.0 9.4 - 12.4 fL 12/10/2024 9:09 AM EDT [facility] Neutrophil % 58.3 50.0 - 75.0 % 12/10/2024 9:09 AM EDT [facility] Immature Grans % 0.5 0.0 - 0.9 % 12/10/2024 9:09 AM EDT [facility] Lymphocyte % 26.2 20.0 - 44.0 % 12/10/2024 9:09 AM EDT [facility] Monocyte % 10.7 0.0 - 14.0 % 12/10/2024 9:09 AM EDT [facility] Eosinophil % 3.5 0.0 - 5.0 % 12/10/2024 9:09 AM EDT [facility] Basophil % 0.8 0.0 - 2.0 % 12/10/2024 9:09 AM EDT [facility] Neutrophil # 3.69 1.80 - 7.70 10*3/uL 12/10/2024 9:09 AM EDT [facility] Immature Grans # 0.03 0.00 - 0.03 10*3/uL 12/10/2024 9:09 AM EDT [facility] Lymphocyte # 1.70 1.00 - 4.75 10*3/uL 12/10/2024 9:09 AM EDT [facility] Monocyte # 0.70(H) 0.00 - 0.60 10*3/uL 12/10/2024 9:09 AM EDT [facility] Eosinophil # 0.20 0.00 - 0.80 10*3/uL 12/10/2024 9:09 AM EDT [facility] Basophil # 0.10 0.00 - 0.20 10*3/uL 12/10/2024 9:09 AM EDT [facility] nRBC % 0.0 0 - 0 /100 WBCs 12/10/2024 9:09 AM EDT [facility] nRBC # <0.01 0.00 - 0.13 10*3/uL 12/10/2024 9:09 AM EDT [facility] Blood Structure of peripheral vein / Unknown Venipuncture / Unknown 12/10/2024 6:00 AM EDT 12/10/2024 7:36 AM EDT us Macho Atoofi PA LAB BLOOD ORDERABLES Final Resul t [facility] [address] [facility] [address] [address], [place] [phone] * (ABNORMAL) Basic Metabolic Panel (12/10/2024 6:00 AM EDT) Only the most recent of4 resultswithin the time period is included. NA 137 136 - 145 mmol/L 12/10/2024 9:44 AM EDT [facility] K 4.5 3.5 - 5.1 mmol/L 12/10/2024 9:44 AM T [facility] Cl 101 98 - 109 mmol/L 12/10/2024 9:44 AM EDT [facility] CO2 23 22 - 32 mmol/L 12/10/2024 9:44 AM T [facility] BUN 27(H) 6 - 20 mg/dL 12/10/2024 9:44 AM [facility] Creatinine 0.90 0.50 - 1.12 mg/dL 12/10/2024 9:44 AM [facility] Glucose 95 60 - 99 mg/dL 12/10/2024 9:44 AM [facility] Calcium 9.4 8.4 - 10.4 mg/dL 12/10/2024 9:44 AM T [facility] Anion Gap 18 >=0 12/10/2024 9:44 AM [facility] eGFR >90 >=60 mL/min/1. 73m2 12/10/2024 9:44 AM T [facility] Comment:The estimated glomer ular filtration rate (eGFR) is calculated using a new formula developed by the NKF-ASN task force to eliminate race-based correction factors. The new formula uses serum/plasma creatinine, age, and gender to determine eGFR. A value below 60mls/min might indicate kidney disease and will be flagged. For additional information, see Vogt et al, Am J Kidney Dis. 2021;79(2):268- 288, A Unifying Approach for GFR estimation: Recommendations of the NKF-ASN Task Force on Reassessing the Inclusion of Race in Diagnosing Kidney Disease . Blood Structure of peripheral vein / Unknown Venipuncture / Unknown 12/10/2024 6:00 AM EDT 12/10/2024 7:34 AM EDT Narrative [facility] - 12/10/2024 9:44 AM EDT NUR3\S\305\S\A\S\0156\S\S\BED\S\0156 [facility] LAB BLOOD ORDERABLES Final Resul t Performing Organization Address [facility] de Phone Number [facility] [address] [address], * Albumin (12/08/2024 6:50 AM EDT) Albumin 4.3 3.5 - 5.0 g/dL 12/08/2024 11:33 AM EDT [facility] Blood Structure of peripheral vein / Unknown Venipuncture / Unknown 12/08/2024 6:50 AM EDT 12/08/2024 7:37 AM EDT Narrative [facility] - 12/08/2024 11:33 AM EDT NUR3\S\305\S\A\S\0156\S\S\BED\S\0156 NUR3\S\305\S\A\S\0156\S\S\BED\S\0156 [facility] BLOOD ORDERABLES Final Resul t Performing Organization Address City/[facility] Co de Phone Number [address] [address], * Phosphorus (12/03/2024 4:16 AM EDT) Only the most recent of2 resultswithin the time period is included. Phosphorus 3.8 2.5 - 4.5 mg/dL 12/03/2024 5:13 AM EDT [facility] Blood Structure of peripheral vein / Unknown Venipuncture / Unknown 12/03/2024 4:16 AM EDT 12/03/2024 4:44 AM EDT Jalen Roberts DO LAB BLOOD ORDERABLES Final Result Performing Organization Address City/[facility]/ZIP Co de Phone Number [facility] [address] [place] [address] * Magnesium (12/03/2024 4:16 AM EDT) Only the most recent of2 resultswithin the time period is included. MG 2.2 1.6 - 2.4 mg/dL 12/03/2024 5:13 AM EDT [facility] Blood Structure of peripheral vein / Unknown Venipuncture / Unknown 12/03/2024 4:16 AM EDT 12/03/2024 4:44 AM EDT Jalen Roberts [employer] LAB BLOOD ORDERABLES Final Result Performing Organization Address City/[facility]/ZIP Co de Phone Number [facility] [address] [place] [address], from Last 3 Months Insurance [employer] [facility] INS Member Subscriber Plan / Payer (Ef fective 2024-Present) Name:Virgil Kessler Relation to Subscriber:Self Name:Virgil Kessler Payer ID:[id number] Group ID:Not on file Type:Not on file x4 Address: [place] [address] Advance Directives Documents on File Type Date Recorded Patient Assistant Press Operator Offset Expl anation Health Care Proxy 12/01/2024 12:47 PM - Health Care Proxy 11/30/2024 7:01 PM 11-30 Health Care Proxy 11/30/2024 4:26 PM * Full Code (Latest Code Status on File) Date Activated Date Inactivated Comments 11/24/2024 5:38 PM 12/07/2024 9:10 PM Healthcare Agents on File Name Relationship Healthcare Agent Relationshi p Communication Laura Kessler Spouse Health Care Agent Care Teams Autocad Relationship Specialty Start Date End Date Ref, Has No Pcp Or DO NOT EDIT THIS RECORD VIA PROVIDER ON THE FLY PCP - General Industrial Chemicals Supervisor 11/24/24
--- OUTSIDE RECORDS SUMMARY | 2025-03-04 20:29 | XMS_ITS | Continuity of Care Document ---
Author Organization [facility] [address] [facility] [address] [place] [address] Phone [phone] Social History Type Date Description Comments Sex Male Sex Unknown Medical Devices Description No Information Available Encounters Description No Information Available Assessments Description No Information Available Plan of Treatment No Information Available Functional Status Description No Information Available Mental Status Description No Information Available Referrals Description No Information Available
--- OUTSIDE RECORDS SUMMARY | 2025-03-04 20:29 | XMS_ITS | Encounter Summary ---
Author Organization [facility] Address [address] [place] [address] Care Team Providers Care Waistband Setter Name Role Phone Ref, Has No Pcp Or Primary Care Provider Unavail able Encounter Details Date Type Department Care Team (Late st Contact Info) Description 02/22/2025 [employer] Biomedicalhart Message [facility] [address] [place] [address] Satya Lucas MD [address] [place] [address] Right wrist Social History Tobacco Use Types Packs/Day Years [...] money to get more. Never true 11/26/2024 [facility] Utilities Answer Date Recorded In [...] Info) Description 03/09/2025 10:00 AM EST Follow-Up [facility] [address] [place] [address] Satya Lucas MD [address] [place] [address] 05/04/2025 10:30 AM EST Follow-Up [facility] [address] [place] [address] Emily Iniguez MD [address] [place] [address] [phone] Danika Moreno PA [address] [place] [phone] Scheduled Procedures Name Priority Associated Diagnoses Date/Ti [...] on filedocumented in this encounter Care Teams Waistband Setter Relationship Specialty Start Date End Date Ref, Has No Pcp Or DO NOT EDIT THIS RECORD VIA PROVIDER ON THE FLY PCP - General Metallurgy Teacher 11/24/24 documented as of this encounter
== END 2025-03-04 16:17 | disposition home or self-care (01) ==
LOC: HO.HMCFM 15:10
PROVIDERS: PCP Physician Assistant Medical; Visit Provider Physician Assistant Medical
DX: Z00.00 Encounter for general adult medical examination without abnormal findings (principal); Z12.11 Encounter for screening for malignant neoplasm of colon; Z13.6 Encounter for screening for cardiovascular disorders; T07.XXXA Unspecified multiple injuries, initial encounter

== ENCOUNTER → 2025-03-04 15:09 | Outpatient (BNVA) | payer OTHER, SELFPAY | PROVIDERS: PCP Physician Assistant Medical; Visit Provider Physician Assistant Medical | DX: Z00.00 Encounter for general adult medical examination without abnormal findings (principal); T07.XXXD Unspecified multiple injuries, subsequent encounter; Z28.21 Immunization not carried out because of patient refusal; Z13.31 Encounter for screening for depression; Z13.39 Encounter for screening examination for other mental health and behavioral disorders | CPT/HCPCS: 96127 ==

== ENCOUNTER 2025-03-05 07:49 | Outpatient (REF) | payer OTHER, SELFPAY ==
--- OUTSIDE RECORDS SUMMARY | 2025-03-05 07:52 | XMS_ITS | Encounter Summary ---
Author Organization [facility] Address [address] [place] [address] Care Team Providers Care Sommelier Name Role Phone Ref, Has No Pcp Or Primary Care Provider Unavail able Encounter Details Date Type Department Care Team (Late st Contact Info) Description 12/07/2024 Lab Requisition [facility] [address] [place] [address] [facility] [address] [facility] [address] [place] [address] Social History Tobacco Use Types Packs/Day Years [...] money to get more. Never true 11/26/2024 [facility] Utilities Answer Date Recorded In the past [...] Info) Description 03/09/2025 10:00 AM EST Follow-Up [facility] [address] [place] [address] Satya Lucas MD [address] [place] [address] 05/04/2025 10:30 AM EST Follow-Up [facility] [address] [place] [address] Emily Iniguez MD [address] [place] [address] Danika Moreno PA [address] [place] [address] Scheduled Procedures Name Priority Associated Diagnoses Date/Ti [...] of this encounter Procedures * Due to [place] state law, this organization might not be [...] in this encounter Results * Due to [place] state law, this organization might not be sharing negative HIV tests. * (ABNORMAL) Basic Metabolic Panel (12/10/2024 6:00 AM EDT) NA 137 136 - 145 mmol/L 12/10/2024 9:44 AM EDT [facility] K 4.5 3.5 - 5.1 mmol/L 12/10/2024 9:44 AM EDT [facility] Cl 101 98 - 109 mmol/L 12/10/2024 9:44 AM EDT [facility] CO2 23 22 - 32 mmol/L 12/10/2024 9:44 AM EDT [facility] BUN 27(H) 6 - 20 mg/dL 12/10/2024 9:44 AM EDT [facility] Creatinine 0.90 0.50 - 1.12 mg/dL 12/10/2024 9:44 AM EDT [facility] Glucose 95 60 - 99 mg/dL 12/10/2024 9:44 AM EDT [facility] Calcium 9.4 8.4 - 10.4 mg/dL 12/10/2024 9:44 AM EDT [facility] Anion Gap 18 >=0 12/10/2024 9:44 AM EDT [facility] eGFR >90 >=60 mL/min/1. 73m2 12/10/2024 9:44 AM EDT [facility] Comment:The estimated glomer ular filtration rate [...] AM EDT 12/10/2024 7:34 AM EDT Narrative [facility] - 12/10/2024 9:44 AM EDT NUR3\S\305\S\A\S\0156\S\S\BED\S\0156 us Macho Atoofi PA LAB BLOOD ORDERABLES Final Resul t [facility] [address] [place] [address] [address] [place] [address], * (ABNORMAL) CBC Auto Differential (12/10/2024 6:00 AM EDT) WBC 6.3 4.8 - 10.8 10*3/uL 12/10/2024 9:09 AM EDT [facility] RBC 4.63(L) 4.70 - 6.10 10*6/uL 12/10/2024 9:09 AM EDT [facility] Hemoglobin 12.4(L) 13.7 - 16.5 g/dL 12/10/2024 9:09 AM EDT [facility] Hematocrit 36.8(L) 40.5 - 48.5 % 12/10/2024 9:09 AM EDT [facility] MCV 79.5(L) 80.0 - 94.0 fL 12/10/2024 9:09 AM EDT [facility] MCH 26.8 26.0 - 34.0 pg 12/10/2024 9:09 AM EDT [facility] MCHC 33.7 31.0 - 36.0 g/dL 12/10/2024 9:09 AM EDT [facility] RDW 12.4 12.0 - 15.0 % 12/10/2024 9:09 AM EDT [facility] RDW Standard Deviation 35.6 35.1 - 43.9 fL 12/10/2024 9:09 AM EDT [facility] Platelets 338 140 - 440 10*3/uL 12/10/2024 9:09 AM EDT [facility] MPV 10.0 9.4 - 12.4 fL 12/10/2024 9:09 AM EDT [facility] Neutrophil % 58.3 50.0 - 75.0 % 12/10/2024 9:09 AM EDT [facility] Immature Grans % 0.5 0.0 - 0.9 % 12/10/2024 9:09 AM EDT [facility] Lymphocyte % 26.2 20.0 - 44.0 % 12/10/2024 9:09 AM EDT [facility] Monocyte % 10.7 0.0 - 14.0 % 12/10/2024 9:09 AM EDT [facility] Eosinophil % 3.5 0.0 - 5.0 % 12/10/2024 9:09 AM EDT [facility] Basophil % 0.8 0.0 - 2.0 % 12/10/2024 9:09 AM EDT [facility] Neutrophil # 3.69 1.80 - 7.70 10*3/uL 12/10/2024 9:09 AM EDT [facility] Immature Grans # 0.03 0.00 - 0.03 10*3/uL 12/10/2024 9:09 AM EDT [facility] Lymphocyte # 1.70 1.00 - 4.75 10*3/uL 12/10/2024 9:09 AM EDT [facility] Monocyte # 0.70(H) 0.00 - 0.60 10*3/uL 12/10/2024 9:09 AM EDT [facility] Eosinophil # 0.20 0.00 - 0.80 10*3/uL 12/10/2024 9:09 AM EDT [facility] Basophil # 0.10 0.00 - 0.20 10*3/uL 12/10/2024 9:09 AM EDT [facility] nRBC % 0.0 0 - 0 /100 WBCs 12/10/2024 9:09 AM EDT [facility] nRBC # <0.01 0.00 - 0.13 10*3/uL 12/10/2024 9:09 AM EDT [facility] Blood Structure of peripheral vein / Unknown Venipuncture / Unknown 12/10/2024 6:00 AM EDT 12/10/2024 7:36 AM EDT [facility] BLOOD ORDERABLES Final Resul t Performing Organization Address [facility] de Phone Number [facility] [address] [place] [address], [place] [phone] * Albumin (12/08/2024 6:50 AM EDT) Albumin 4.3 3.5 - 5.0 g/dL 12/08/2024 11:33 AM EDT [facility] Blood Structure of peripheral vein / Unknown Venipuncture / Unknown 12/08/2024 6:50 AM EDT 12/08/2024 7:37 AM EDT Narrative [facility] - 12/08/2024 11:33 AM EDT NUR3\S\305\S\A\S\0156\S\S\BED\S\0156 NUR3\S\305\S\A\S\0156\S\S\BED\S\0156 Macho Atoofi PA LAB BLOOD ORDERABLES Final Resul t Performing Organization Address [facility] Co de Phone Number [facility] [address] [place] [address], [place] [phone] * (ABNORMAL) Basic Metabolic Panel (12/08/2024 6:50 AM EDT) NA 137 136 - 145 mmol/L 12/08/2024 11:33 AM EDT [facility] K 4.8 3.5 - 5.1 mmol/L 12/08/2024 11:33 AM EDT [facility] Cl 101 98 - 109 mmol/L 12/08/2024 11:33 AM EDT [facility] CO2 24 22 - 32 mmol/L 12/08/2024 11:33 AM EDT [facility] BUN 20 6 - 20 mg/dL 12/08/2024 11:33 AM EDT [facility] Creatinine 0.87 0.50 - 1.12 mg/dL 12/08/2024 11:33 AM EDT [facility] Glucose 111(H) 60 - 99 mg/dL 12/08/2024 11:33 AM EDT [facility] Calcium 9.8 8.4 - 10.4 mg/dL 12/08/2024 11:33 AM EDT [facility] Anion Gap 17 >=0 12/08/2024 11:33 AM T [facility] eGFR >90 >=60 mL/min/1. 73m2 12/08/2024 11:33 AM T [facility] Comment:The estimated glomer ular filtration rate [...] 6:50 AM EDT 12/08/2024 7:37 AM EDT [facility] - 12/08/2024 11:33 AM EDT NUR3\S\305\S\A\S\0156\S\S\BED\S\0156 NUR3\S\305\S\A\S\0156\S\S\BED\S\0156 us Macho Atemmafi PA LAB BLOOD ORDERABLES Final Resul t [facility] [address] [place] [address], * (ABNORMAL) CBC Auto Differential (12/08/2024 6:50 AM EDT) WBC 6.6 4.8 - 10.8 10*3/uL 12/08/2024 11:02 AM EDT [facility] RBC 4.98 4.70 - 6.10 10*6/uL 12/08/2024 11:02 AM EDT [facility] Hemoglobin 13.3(L) 13.7 - 16.5 g/dL 12/08/2024 11:02 AM EDT [facility] Hematocrit 40.2(L) 40.5 - 48.5 % 12/08/2024 11:02 AM EDT [facility] MCV 80.7 80.0 - 94.0 fL 12/08/2024 11:02 AM EDT [facility] MCH 26.7 26.0 - 34.0 pg 12/08/2024 11:02 AM EDT [facility] MCHC 33.1 31.0 - 36.0 g/dL 12/08/2024 11:02 AM EDT [facility] RDW 12.5 12.0 - 15.0 % 12/08/2024 11:02 AM EDT [facility] RDW Standard Deviation 36.1 35.1 - 43.9 fL 12/08/2024 11:02 AM EDT [facility] Platelets 387 140 - 440 10*3/uL 12/08/2024 11:02 AM EDT [facility] Comment:REVIEWED MPV 9.8 9.4 - 12.4 fL 12/08/2024 11:02 AM EDT [facility] Neutrophil % 62.7 50.0 - 75.0 % 12/08/2024 11:02 AM EDT [facility] Immature Grans % 0.5 0.0 - 0.9 % 12/08/2024 11:02 AM EDT [facility] Lymphocyte % 24.1 20.0 - 44.0 % 12/08/2024 11:02 AM EDT [facility] Monocyte % 9.5 0.0 - 14.0 % 12/08/2024 11:02 AM EDT [facility] Eosinophil % 2.6 0.0 - 5.0 % 12/08/2024 11:02 AM EDT [facility] Basophil % 0.6 0.0 - 2.0 % 12/08/2024 11:02 AM EDT [facility] Neutrophil # 4.17 1.80 - 7.70 10*3/uL 12/08/2024 11:02 AM EDT [facility] Immature Grans # 0.03 0.00 - 0.03 10*3/uL 12/08/2024 11:02 AM EDT [facility] Lymphocyte # 1.60 1.00 - 4.75 10*3/uL 12/08/2024 11:02 AM EDT [facility] Monocyte # 0.60 0.00 - 0.60 10*3/uL 12/08/2024 11:02 AM EDT [facility] Eosinophil # 0.20 0.00 - 0.80 10*3/uL 12/08/2024 11:02 AM EDT [facility] Basophil # <0.03 0.00 - 0.20 10*3/uL 12/08/2024 11:02 AM EDT [facility] nRBC % 0.0 0 - 0 /100 WBCs 12/08/2024 11:02 AM EDT [facility] nRBC # <0.01 0.00 - 0.13 10*3/uL 12/08/2024 11:02 AM EDT [facility] Blood Structure of peripheral vein / Unknown Venipuncture / Unknown 12/08/2024 6:50 AM EDT 12/08/2024 7:39 AM EDT us Macho Atoofi PA LAB BLOOD ORDERABLES Final Resul t [facility] [address] [address], [place] [phone] documented in this encounter Visit Diagnoses Not on filedocumented in this encounter Care Teams Sommelier Relationship Specialty Start Date End Date Ref, Has No Pcp Or DO NOT EDIT THIS RECORD VIA PROVIDER ON THE FLY PCP - General Wire Repairer 11/24/24 documented as of this encounter
--- OUTSIDE RECORDS SUMMARY | 2025-03-05 07:52 | XMS_ITS | Continuity of Care Document ---
Author Organization [facility] [address] [facility] [address] [place] [address] Phone [phone] Social History Type Date Description Comments Sex Male Sex Unknown Medical Devices Description No Information Available Encounters Description No Information Available Assessments Description No Information Available Plan of Treatment No Information Available Functional Status Description No Information Available Mental Status Description No Information Available Referrals Description No Information Available
--- OUTSIDE RECORDS SUMMARY | 2025-03-05 07:52 | XMS_ITS | Encounter Summary ---
Author Organization [facility] Address [address] [place] [address] Care Team Providers Care Industrial Trainer Name Role Phone Ref, Has No Pcp Or Primary Care Provider Unavail able Encounter Details Date Type Department Care Team (Late st Contact Info) Description 02/22/2025 Utility Scale Solarhart Message [facility] [address] [place] [address] Satya Lucas MD [address] [place] [address] Right wrist Social History Tobacco Use Types [...] money to get more. Never true 11/26/2024 [facility] Utilities Answer Date Recorded In the [...] Info) Description 03/09/2025 10:00 AM EST Follow-Up [facility] [address] [place] [address] Satya Lucas MD [address] [place] [address] 05/04/2025 10:30 AM EST Follow-Up [facility] [address] [place] [address] Emily Iniguez MD [address] [place] [address] [phone] Danika Moreno PA [address] [place] [phone] Scheduled Procedures Name Priority Associated Diagnoses Date/Ti [...] on filedocumented in this encounter Care Teams Industrial Trainer Relationship Specialty Start Date End Date Ref, Has No Pcp Or DO NOT EDIT THIS RECORD VIA PROVIDER ON THE FLY PCP - General Slicing Machine Operator 11/24/24 documented as of this encounter
--- OUTSIDE RECORDS SUMMARY | 2025-03-05 07:52 | XMS_ITS | Clinical Summary ---
Author Organization [facility] Address [address] [place] [address] Care Team Providers Care Calciner Operator Helper Name Role Phone Ref, Has No Pcp [...] noted on XR and CT scans - [facility] as above - Ortho following, appreciate recs [...] Care Team Description 02/26/2025 Orders Only [facility] [address] [place] [address] Satya Lucas MD Other closed intra-articular fracture of distal end of left radius with routine healing, subsequent encounter (Primary Dx); Other closed intra-articular fracture of distal end of right radius, initial encounter 02/22/2025 myChart Message [facility] Upper Extremity [address] [address] Satya Lucas MD Right wrist 02/10/2025 myChart Message [facility] [address] [place] [address] Baldemar, Generic Provider Physician form 02/09/2025 1:15 PM EDT Follow-Up [facility] [address] [place] [address] Emily Iniguez MD Multiple closed anterior-posterior compression fractures of pelvis with unstable pelvic ring (Primary Dx) 02/09/2025 11:00 AM EDT Follow-Up [facility] Extremity [address] [address] Satya Lucas MD Other closed intra-articular fracture of distal end of right radius, initial encounter (Primary Dx); Other closed intra-articular fracture of distal end of left radius with routine healing, subsequent encounter 02/08/2025 Orders Only [facility] Podiatry [address] [place] [address] Manuscript Editor: Chloe Floyd CMA Multiple closed anterior-posterior compression fractures of pelvis with unstable pelvic ring (Primary Dx) 02/02/2025 Orders Only [facility] Extremity [address] [address] Satya Lucas MD Left wrist pain (Primary Dx); Other closed intra-articular fracture of distal end of right radius, initial encounter 02/01/2025 Orders Only [facility] [address] [address] Chloe Dallas CMA Closed fracture of multiple pubic rami, right, initial encounter (Primary Dx) 01/12/2025 11:00 AM EDT Follow-Up [address] [address] Satya Lucas MD Other closed intra-articular fracture of distal end of right radius, initial encounter (Primary Dx); Other closed intra-articular fracture of distal end of left radius with routine healing, subsequent encounter 01/01/2025 Orders Only [address] [address] Satya Lucas MD Left wrist pain (Primary Dx); Other closed intra-articular fracture of distal end of right radius, initial encounter 12/29/2024 2:15 PM EDT Follow-Up [facility] [address] [place] [address] Emily Iniguez MD Multiple closed anterior-posterior compression fractures of pelvis with unstable pelvic ring (HCC) (Primary Dx) 12/28/2024 Orders Only [facility] [address] [address] Chloe Dallas CMA Closed fracture of multiple pubic rami, right, initial encounter (HCC) (Primary Dx) 12/15/2024 10:45 AM EDT Follow-Up [facility] [address] [place] [address] Emily Iniguez MD Multiple closed anterior-posterior compression fractures of pelvis with unstable pelvic ring (HCC) (Primary Dx) 12/10/2024 2:45 PM EDT Office Visit [facility] Hand Therapy [address] [place] [address] Lidia Waterman OT Closed intra-articular -punch fracture of right radius with routine healing, subsequent encounter (Primary Dx); Deficit in activities of daily living (ADL) 12/10/2024 1:30 PM EDT Office Visit [facility] [address] [place] [address] Satya Lucas MD Other closed intra-articular fracture of distal end of right radius, initial encounter (Primary Dx) 12/10/2024 Orders Only [facility] [address] [place] [address] Satya Lucas MD Left wrist pain (Primary Dx) 12/09/2024 Orders Only [facility] [address] [place] [address] Satya Lucas MD Other closed intra-articular fracture of distal end of right radius, initial encounter (Primary Dx) 12/07/2024 Lab Requisition [facility] [address] [place] [address] Macho Robles PA 11/24/2024 12:20 PM EDT - 12/07/2024 7:10 PM EDT Hospital Encounter [facility] [address] [place] [address] Teddy Buckner MD Polan, David L., MD [...] money to get more. Never true 11/26/[address] [facility] Utilities Answer Date Recorded In the [...] Description 03/09/2025 10:00 AM EST Follow-Up [facility] [address] [place] [address] Satya Lucas MD [address] [place] [address] 05/04/2025 10:30 AM EST Follow-Up [facility] [address] [place] [address] Emily Iniguez MD [address] [place] [address] [phone] Danika Moreno PA [address] [place] [address] Scheduled Procedures Name Priority Associated Diagnoses Date/Ti [...] history exists Medical Devices Implanted Type Area Health Technician Hearing Device Identifier Shelf Expiration Date Model / Serial / Lot Washer For 6.5mm Cannulated Screw - [id number] Implanted:Qty: 1 on 11/27/2024 by Emily Iniguez MD at [facility] Implant Right: Hip [employer] 04.353.907 .05 / / Plate Volar Peek Wide Right 5 Hole - [id number] Implanted:Qty: 1 on 11/30/2024 by Satya Lucas MD at [facility] Implant Right: Wrist [employer] VWPR5 / / Peg Locking 2.7adz85bi - [id number] Implanted:Qty: 3 on 11/30/2024 by Satya Lucas MD at [facility] Implant Right: Wrist Strategy [employer] [id number] / / Screw Bone Cannulated Fully Threaded Self-Tapping Self-Drilling Titanium 6.4nsa29lf Css Plus - [id number] Implanted:Qty: 1 on 11/27/2024 by Emily Iniguez MD at [facility] Screw Right: Hip DEPUY [employer] [id number] / / Screw Bone Cannulated Fully Threaded Self-Tapping Self Drilling Titanium Sterile 6.5mm X 160mm Css Plus - [id number] Implanted:Qty: 1 on 11/27/2024 by Emily Iniguez MD at [facility] Screw Right: Hip DEPUY LMN-1 SALES 10/06/2027 04.355.712 S / / [id number] Screw Locking 2.3jty24mg - [id number] Implanted:Qty: 2 on 11/30/2024 by Satya Lucas MD at [facility] Screw Right: Wrist [employer] [id number] / / Screw Locking 2.1ymc65fg - [id number] Implanted:Qty: 1 on 11/30/2024 by Satya Lucas MD at [facility] Screw Right: Wrist [employer] [id number] / / Screw Non-Locking 2.8wlc43hr - [id number] Implanted:Qty: 2 on 11/30/2024 by Satya Lucas MD at [facility] Screw Right: Wrist [employer] FW0007 / / Screw Non-Locking 2.4xhq09wy - [id number] Implanted:Qty: 1 on 11/30/2024 by Satya Lucas MD at [facility] Screw Right: Wrist [employer] QD9959 / / Screw Non-Locking 2.5zbp80mn - [id number] Implanted:Qty: 2 on 11/30/2024 by Satya Lucas MD at [facility] Screw Right: Wrist [employer] IZ5810 / / Peg Locking 2.1zzy69ad - [id number] Implanted:Qty: 2 on 11/30/2024 by Satya Lucas MD at [facility] Screw Right: Wrist [employer] [id number] / / Procedures * Due to [place] state law, this organization might not be [...] of multiple pubic rami, right, initial encounter ([facility]) XR WRIST 3+ VW LEFT Routine 12/10/2024 [...] AUTO DIFFERENTIAL Routine 12/03/2024 4:16 AM EDT from Last 3 Months Results * Due to [place] state law, this organization might not be [...] to obtain the completed interpretation. Workstation ID: [id number] Narrative 02/11/2025 10:16 AM EDT XR PELVIS [...] the lower lumbar spine. Resulting Agency Comment [id number] Procedure Note Luis Faria MD - 02/11/2025 [...] possible to obtain thecompleted interpretation. Workstation ID: [id number] Emily Iniguez MD IMG XR PROCEDURES Final [...] to obtain the completed interpretation. Workstation ID: [id number] Narrative 02/11/2025 12:42 PM EDT COMPARISON: 01/12/2025 FINDINGS: Volar plate and screw fixation of the healing intra-articular comminuted fracture. Similar alignment with continued callus. Hardware remains intact. There is no radiographic evidence of hardware-related complication. Unchanged displaced ulnar styloid fracture avulsion. Diffuse osteopenia. No acute fracture. Resulting Agency Comment [id number] Procedure Note Sami Nguyen, DO - 02/11/2025 [...] possible to obtain thecompleted interpretation. Workstation ID: [id number] Satya Lucas MD IMG XR PROCEDURES Final [...] to obtain the completed interpretation. Workstation ID: [id number] Narrative 02/11/2025 12:48 PM EDT COMPARISON: 01/12/2025 FINDINGS: Similar alignment of the healing minimally displaced distal radial intra-articular fracture. No acute fracture. Distal radioulnar joint is congruent. Resulting Agency Comment [id number] Procedure Note Sami Nguyen, DO - 02/11/2025 [...] possible to obtain thecompleted interpretation. Workstation ID: [id number] Satya Lucas MD IMG XR PROCEDURES Final Result * (ABNORMAL) CBC Auto Differential (12/10/2024 6:00 AM EDT) Only the most recent of3 resultswithin the time period is included. WBC 6.3 4.8 - 10.8 10*3/uL 12/10/2024 9:09 AM EDT [facility] RBC 4.63(L) 4.70 - 6.10 10*6/uL 12/10/2024 9:09 AM EDT [facility] Hemoglobin 12.4(L) 13.7 - 16.5 g/dL 12/10/2024 9:09 AM EDT [facility] Hematocrit 36.8(L) 40.5 - 48.5 % 12/10/2024 9:09 AM EDT [facility] MCV 79.5(L) 80.0 - 94.0 fL 12/10/2024 9:09 AM EDT [facility] MCH 26.8 26.0 - 34.0 pg 12/10/2024 9:09 AM EDT [facility] MCHC 33.7 31.0 - 36.0 g/dL 12/10/2024 9:09 AM EDT [facility] RDW 12.4 12.0 - 15.0 % 12/10/2024 9:09 AM EDT [facility] RDW Standard Deviation 35.6 35.1 - 43.9 fL 12/10/2024 9:09 AM EDT [facility] Platelets 338 140 - 440 10*3/uL 12/10/2024 9:09 AM EDT [facility] MPV 10.0 9.4 - 12.4 fL 12/10/2024 9:09 AM EDT [facility] Neutrophil % 58.3 50.0 - 75.0 % 12/10/2024 9:09 AM EDT [facility] Immature Grans % 0.5 0.0 - 0.9 % 12/10/2024 9:09 AM EDT [facility] Lymphocyte % 26.2 20.0 - 44.0 % 12/10/2024 9:09 AM EDT [facility] Monocyte % 10.7 0.0 - 14.0 % 12/10/2024 9:09 AM EDT [facility] Eosinophil % 3.5 0.0 - 5.0 % 12/10/2024 9:09 AM EDT [facility] Basophil % 0.8 0.0 - 2.0 % 12/10/2024 9:09 AM EDT [facility] Neutrophil # 3.69 1.80 - 7.70 10*3/uL 12/10/2024 9:09 AM EDT [facility] Immature Grans # 0.03 0.00 - 0.03 10*3/uL 12/10/2024 9:09 AM EDT [facility] Lymphocyte # 1.70 1.00 - 4.75 10*3/uL 12/10/2024 9:09 AM EDT [facility] Monocyte # 0.70(H) 0.00 - 0.60 10*3/uL 12/10/2024 9:09 AM EDT [facility] Eosinophil # 0.20 0.00 - 0.80 10*3/uL 12/10/2024 9:09 AM EDT [facility] Basophil # 0.10 0.00 - 0.20 10*3/uL 12/10/2024 9:09 AM EDT [facility] nRBC % 0.0 0 - 0 /100 WBCs 12/10/2024 9:09 AM EDT [facility] nRBC # <0.01 0.00 - 0.13 10*3/uL 12/10/2024 9:09 AM EDT [facility] Blood Structure of peripheral vein / Unknown Venipuncture / Unknown 12/10/2024 6:00 AM EDT 12/10/2024 7:36 AM EDT us Macho Atoofi PA LAB BLOOD ORDERABLES Final Resul t [facility] [address] [place] [address], [place] [phone] * (ABNORMAL) Basic Metabolic Panel (12/10/2024 6:00 AM EDT) Only the most recent of3 resultswithin the time period is included. NA 137 136 - 145 mmol/L 12/10/2024 9:44 AM EDT [facility] K 4.5 3.5 - 5.1 mmol/L 12/10/2024 9:44 AM EDT [facility] Cl 101 98 - 109 mmol/L 12/10/2024 9:44 AM EDT [facility] CO2 23 22 - 32 mmol/L 12/10/2024 9:44 AM EDT [facility] BUN 27(H) 6 - 20 mg/dL 12/10/2024 9:44 AM EDT [facility] Creatinine 0.90 0.50 - 1.12 mg/dL 12/10/2024 9:44 AM EDT [facility] Glucose 95 60 - 99 mg/dL 12/10/2024 9:44 AM EDT [facility] Calcium 9.4 8.4 - 10.4 mg/dL 12/10/2024 9:44 AM EDT [facility] Anion Gap 18 >=0 12/10/2024 9:44 AM EDT [facility] eGFR >90 >=60 mL/min/1. 73m2 12/10/2024 9:44 AM EDT [facility] Comment:The estimated glomer ular [...] AM EDT 12/10/2024 7:34 AM EDT Narrative [facility] - 12/10/2024 9:44 AM EDT NUR3\S\305\S\A\S\0156\S\S\BED\S\0156 us Macho Atoofi PA LAB BLOOD ORDERABLES Final Resul t [facility] [address] [facility] [address] [place] [address], * Albumin (12/08/2024 6:50 AM EDT) Albumin 4.3 3.5 - 5.0 g/dL 12/08/2024 11:33 AM EDT [facility] Blood Structure of peripheral vein / Unknown Venipuncture / Unknown 12/08/2024 6:50 AM EDT 12/08/2024 7:37 AM EDT Narrative [facility] - 12/08/2024 11:33 AM EDT NUR3\S\305\S\A\S\0156\S\S\BED\S\0156 NUR3\S\305\S\A\S\0156\S\S\BED\S\0156 Macho Atdelfina PA LAB BLOOD ORDERABLES Final Resul t [facility] [address] [address], * Phosphorus (12/03/2024 4:16 AM EDT) Phosphorus 3.8 2.5 - 4.5 mg/dL 12/03/2024 5:13 AM EDT Employee Benefit Plans [facility] Blood Structure of peripheral vein / Unknown Venipuncture / Unknown 12/03/2024 4:16 AM EDT 12/03/2024 4:44 AM EDT Jalen Roberts DO LAB BLOOD ORDERABLES Final Result Employee Benefit Plans [facility] [address] [place] [address], * Magnesium (12/03/2024 4:16 AM EDT) MG 2.2 1.6 - 2.4 mg/dL 12/03/2024 5:13 AM EDT Employee Benefit Plans [facility] Blood Structure of peripheral vein / Unknown Venipuncture / Unknown 12/03/2024 4:16 AM EDT 12/03/2024 4:44 AM EDT Jalen Roberts DO LAB BLOOD ORDERABLES Final Result [facility] [address] [place] [address], [place] from Last 3 Months Insurance [employer] [facility] Member Subscriber Plan / Payer (Ef fective 2024-Present) Name:Virgil Kessler Relation to Subscriber:Self Name:Virgil Kessler Payer ID:[id number] Group ID:Not on file Type:Not on file x4 Address: [facility] [address] [place] [address] Advance Directives Documents on File Type Date Recorded Patient Urban Design Consultant Expl anation Health Care Proxy 12/01/2024 12:47 PM 11-13 Health Care Proxy 11/30/2024 7:01 PM 11-30 Health Care Proxy 11/30/2024 4:26 PM * Full Code (Latest Code Status on File) Date Activated Date Inactivated Comments 11/24/2024 5:38 PM 12/07/2024 9:10 PM Healthcare Agents on File Name Relationship Healthcare Agent Andrey chavez Communication Laura Kessler Spouse Health Care Agent Care Teams Calciner Operator Helper Relationship Specialty Start Date End Date Ref, Has No Pcp Or DO NOT EDIT THIS RECORD VIA PROVIDER ON THE FLY PCP - General Operating Room Coordinator 11/24/24
--- OUTSIDE RECORDS SUMMARY | 2025-03-05 07:52 | XMS_ITS | Encounter Summary ---
Author Organization [facility] Address [address] [place] [address] Care Team Providers Care Hospice Team Lead Name Role Phone Ref, Has No Pcp Or Primary Care Provider Unavail able Encounter Details Date Type Department Care Team (Late st Contact Info) Description 02/10/2025 iClinical Message [facility] [address] [place] [phone] [employer], Generic Provider [address] [place], [place] [id number] Physician form Social History Tobacco Use Types [...] money to get more. Never true 11/26/2024 [facility] Utilities Answer Date Recorded In the past [...] Info) Description 03/09/2025 10:00 AM EST Follow-Up [facility] [address] [place] [phone] Satya Lucas MD [address] [place] [address] 05/04/2025 10:30 AM EST Follow-Up [facility] [address] [place] [address] Emily Iniguez MD [address] [place] [address] Danika Moreno PA [address] [place] [address] Scheduled Procedures Name Priority Associated Diagnoses Date/Ti [...] on filedocumented in this encounter Care Teams Hospice Team Lead Relationship Specialty Start Date End Date Ref, Has No Pcp Or DO NOT EDIT THIS RECORD VIA PROVIDER ON THE FLY PCP - General Shot Blaster 11/24/24 documented as of this encounter
--- OUTSIDE RECORDS SUMMARY | 2025-03-05 07:52 | XMS_ITS | Encounter Summary ---
Author Organization [facility] Address [address] [place] [address] Care Team Providers Care Casting Technician Name Role Phone Ref, Has No Pcp Or Primary Care Provider Unavail able Encounter Details Date Type Department Care Team (Late st Contact Info) Description 02/26/2025 Orders Only [facility] [address] [place] [address] Satya Lucas MD [address] [place] [address] Other closed intra-articular fracture of distal end [...] money to get more. Never true 11/26/2024 [facility] Utilities Answer Date Recorded In the [...] Info) Description 03/09/2025 10:00 AM EST Follow-Up [facility] [address] [place] [phone] Satya Lucas MD [address] [place] [address] 05/04/2025 10:30 AM EST Follow-Up [facility] [address] [place] [phone] Emily Iniguez MD [address] [place] [address] Danika Moreno PA [address] [place] [address] Scheduled Orders Name Type Priority Associated Diagnoses [...] encounter documented in this encounter Care Teams Casting Technician Relationship Specialty Start Date End Date Ref, Has No Pcp Or DO NOT EDIT THIS RECORD VIA PROVIDER ON THE FLY PCP - General Matrix Worker 11/24/24 documented as of this encounter
[2025-03-05 11:44] LABS: Hematocrit 45.7 % (42.0-52.0); Hemoglobin 15.1 g/dl (14.0-18.0); Mean Corpuscular HGB Conc 33.0 g/dl (31.0-36.0); Mean Corpuscular Hemoglobin 26.6 pg (27.0-33.0); Mean Corpuscular Volume 80.6 fL (80.0-98.0); NRBC Abs Auto 0.000 X10*3/uL (0.0-0.012); NRBC Pct Auto 0.0 /100WBC (0.0-0.2); Platelet Count 210 X10*3/uL (160-400); Red Blood Count 5.67 X10*6/uL (4.60-5.80); White Blood Count 4.6 X10*3/uL (4.8-10.8)
[2025-03-05 12:39] LABS: Prostate Specific Antigen 0.67 ng/mL (<0.05-4.0); Vitamin B12 980 pg/mL (200-900)
[2025-03-05 13:21] LABS: Alanine Aminotransferase 34 U/L (0-40); Albumin Level 4.4 g/dL (3.5-5.0); Alkaline Phosphatase 112 U/L (39-117); Anion Gap 10 (12-20); Aspartate Amino Transferase 24 U/L (5-37); Blood Urea Nitrogen 19 mg/dL (9-16); Calcium 9.3 mg/dL (8.4-10.2); Carbon Dioxide 27 mmol/L (22-29); Chloride 107 mmol/L (96-108); Cholesterol 280 mg/dL (<200); Estimated Glomerular Filt Rate > 60; HDL Cholesterol 41 mg/dL (>40); Potassium 4.4 mmol/L (3.3-5.1); Sodium 140 mmol/L (135-145); Total Protein 7.5 g/dL (6.5-8.0); Triglycerides 188 mg/dL (<150)
[2025-03-11 17:38] LABS: Vitamin D 25-OH, D2 <4 ng/mL; Vitamin D 25-OH, D3 36 ng/mL; Vitamin D 25-OH, Total 36 ng/mL (30-100)
== END 2025-03-05 07:50 | disposition home or self-care (01) ==
LOC: HO.WFDLDS 07:49
PROVIDERS: Visit Provider Physician Assistant Medical
DX: Z00.00 Encounter for general adult medical examination without abnormal findings (principal); Z12.11 Encounter for screening for malignant neoplasm of colon; Z13.6 Encounter for screening for cardiovascular disorders; Z12.5 Encounter for screening for malignant neoplasm of prostate; T07.XXXA Unspecified multiple injuries, initial encounter; Z91.89 Other specified personal risk factors, not elsewhere classified
CPT/HCPCS: 36415; 80053; 80061; 82306; 82607; 84153; 84443; 84481; 85027